=== PATIENT | female | born 2000 | race American Indian/Alaskan Native ===

== ENCOUNTER 2018-12-31 10:04 | Emergency (ER) | payer OTHER ==
[2018-12-31 10:42] VITALS: BP 114/76
[2018-12-31] MEDS ORDERED: IBUPROFEN PO ONE (12:53)
--- NOTE | 2018-12-31 12:57 | Emergency Department Report ---
ED Extremity Problem HPI - General Chief complaint: Shoulder Injury Stated complaint: (R) SHOULDER PAIN Time Seen by Provider: 12/31/18 12:31 Source: patient Mode of arrival: Ambulatory Limitations: No Limitations - History of Present Illness Initial comments: Patient is a 18-year-old asthmatic female who is complaining of right deltoid pain for the past 10 days. 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 Patient states the pain is worsening over the last several days. Patient states she has been using her left hand almost exclusively. His states the pain is minimal at rest however is 8 out of 10 when she tries to lift her arm in any direction. She denies any direct trauma or injury. Severity scale (0 -10): 8 - Related Data Previous Rx's Medication Instructions Recorded Last Taken Type Ibuprofen [Motrin] 800 mg PO Q8HR PRN #20 tablet 12/31/18 Unknown Rx methOCARBAMOL [Robaxin TAB] 500 mg PO Q6H PRN #15 tablet 12/31/18 Unknown Rx traMADol [Ultram] 50 mg PO Q6HR PRN #12 tablet 12/31/18 Unknown Rx Allergies Allergy/AdvReac Type Severity Reaction Status Date / Time No Known Allergies Allergy Unverified 12/31/18 10:06 ED Review of Systems ROS: Stated complaint: (R) SHOULDER PAIN Other details as noted in HPI Comment: All other systems reviewed and negative ED Past Medical Hx - Past Medical History Previous Medical History?: No - Surgical History Past Surgical History?: No - Social History Smoking Status: Never Smoker Substance Use Type: None - Medications Home Medications: Home Medications Medication Instructions Recorded Confirmed Last Taken Type Ibuprofen [Motrin] 800 mg PO Q8HR PRN #20 tablet 12/31/18 Unknown Rx methOCARBAMOL [Robaxin TAB] 500 mg PO Q6H PRN #15 tablet 12/31/18 Unknown Rx traMADol [Ultram] 50 mg PO Q6HR PRN #12 tablet 12/31/18 Unknown Rx ED Physical Exam - General Limitations: No Limitations General appearance: alert, in no apparent distress - Head Head exam: Present: atraumatic, normocephalic - Eye Eye exam: Present: normal appearance - ENT ENT exam: Present: mucous membranes moist - Neck Neck exam: Present: normal inspection - Respiratory Respiratory exam: Present: normal lung sounds bilaterally. Absent: respiratory distress, wheezes, rales, rhonchi - Cardiovascular Cardiovascular Exam: Present: regular rate, normal rhythm. Absent: systolic murmur, diastolic murmur, rubs, gallop - GI/Abdominal GI/Abdominal exam: Present: soft, normal bowel sounds. Absent: distended, tenderness, guarding, rebound, rigid - Extremities Exam Extremities exam: Present: normal inspection, tenderness (patient has tenderness to palpation of the right deltoid. There is no deltoid deformity. She does have full range of motion however there is significant pain with ranging) - Back Exam Back exam: Present: normal inspection - Neurological Exam Neurological exam: Present: alert, oriented X3 - Psychiatric Psychiatric exam: Present: normal affect, normal mood - Skin Skin exam: Present: warm, dry, intact, normal color. Absent: rash ED Course Vital Signs 12/31/18 10:41 Temperature 98.3 F Pulse Rate 80 Respiratory 18 Rate Blood Pressure 114/76 O2 Sat by Pulse 98 Oximetry ED Medical Decision Making - Medical Decision Making Patient likely with a muscle pull or strain to the right shoulder. Patient be referred to orthopedics. Patient given his symptom relief. Patient placed in a sling as well. Critical care attestation.: If time is entered above; I have spent that time in minutes in the direct care of this critically ill patient, excluding procedure time. ED Disposition Clinical Impression: Shoulder strain Qualifiers: Encounter type: initial encounter Laterality: right Qualified Code(s): S46.911A - Strain of unspecified muscle, fascia and tendon at shoulder and upper arm level, right arm, initial encounter Disposition: - TO HOME OR SELFCARE Is pt being admited?: No Does the pt Need Aspirin: No Condition: Stable Instructions: Shoulder Sprain (ED) Referrals: MICHI YOO MD [Staff Physician] - 3-5 Days Time of Disposition: 12:56
== END 2018-12-31 13:04 | disposition home or self-care (01) ==
LOC: ED 10:04
DX: S46.911A Strain of unspecified muscle, fascia and tendon at shoulder and upper arm level, right arm, initial encounter (principal); X58.XXXA Exposure to other specified factors, initial encounter; Y93.B2 Activity, push-ups, pull-ups, sit-ups; Y92.239 Unspecified place in hospital as the place of occurrence of the external cause; Y99.0 Civilian activity done for income or pay